=== PATIENT | female | born 1970 | race Caucasian/White ===

== ENCOUNTER 2019-07-06 00:08 | Emergency (ER) | payer BC ==
[~2019-07-06] VITALS: Ht 172.7 cm; Wt 65.8 kg
--- NOTE | 2019-07-06 00:15 | NUR ---
PT [id number] C/O OVERDOSE. PER EMS, PT TOOK MULTIPLE OXYCOTIN THROUGHOUT THE DAY, PT DENIES HI/SI. PT AXO4. RESPIRATIONS EVEN AND UNLABORED. 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 WILL CONTINUE TO MONITOR CLOSELY.
--- NOTE | 2019-07-06 01:15 | NUR ---
PT RESTING BED, NAD NOTED. WILL CONTINUE TO MONITOR.
--- NOTE | 2019-07-06 02:25 | NUR ---
Patient discharged to home in stable condition. Written and verbal after care instructions given. Patient verbalizes understanding of instruction. IV removed. Catheter intact and site benign. Pressure and 4x4 applied to site. No bleeding noted.
[2019-07-06 02:27] VITALS: BP 130/66
== END 2019-07-06 02:29 | disposition home or self-care (01) ==
LOC: ER 00:13
DX: T40.601A Poisoning by unspecified narcotics, accidental (unintentional), initial encounter (principal); F41.9 Anxiety disorder, unspecified; F32.9 Major depressive disorder, single episode, unspecified; Z98.890 Other specified postprocedural states; Z88.1 Allergy status to other antibiotic agents; Y92.89 Other specified places as the place of occurrence of the external cause

== ENCOUNTER 2019-08-30 06:45 | Inpatient (IN) | payer BC ==
[~2019-08-30] VITALS: Ht 172.7 cm; Wt 67.1 kg
[2019-08-30] MEDS ORDERED: IV NS 0.9% 1,000 ML BAG IV ONE ×2 (07:00→08:30)
--- NOTE | 2019-08-30 07:17 | NUR ---
ALEXI FROM HOME FOR POSSIBLE OD, GIVEN 2MG NARCAN PER EMS, WITH RELIEF. PT A/OX4, PER PT SHE TOOK 10 OXY AND 15 NORCO PILLS. CONNECTED TO MONITOR SAT 92 ON 2L. BLOOD DRAWN AND SENT TO LAB, ORDERS RECEIVED AND CARRIED OUT.
[2019-08-30 07:20] LABS: BASOPHILS # (AUTO) 0.2 /CMM (0.0-0.2); BASOPHILS % (AUTO) 1.5 % (0.0-2.0); HEMATOCRIT 45 % (33-45); LYMPHOCYTES # (AUTO) 0.7 /CMM (0.8-4.8); LYMPHOCYTES % (AUTO) 5.7 % (20.0-44.0); MEAN CORPUSCULAR HGB CONC 33 g/dl (31.0-36.0); MEAN CORPUSCULAR VOLUME 94 fL (82-100); MONOCYTES # (AUTO) 0.5 /CMM (0.1-1.30); MONOCYTES % (AUTO) 3.6 % (2.0-12.0); NEUTROPHILS # (AUTO) 11.6 /CMM (1.8-8.9); NEUTROPHILS % (AUTO) 89.2 % (43.0-81.0); PLATELET COUNT (AUTO) 322 /CMM (150-450); RED BLOOD CELL COUNT(AUTO) 4.82 MIL/uL (4.0-5.2)
--- NOTE | 2019-08-30 07:25 | NUR ---
Ross schwab in EDM - 08/30/19 at 0727 by OSMAR RECEIVED REPORT FROM CHAN GALVAN FOR SAVANAH, PT IS AAOX3, NOT IN RESPIRATORY DISTRESS, V/S STABLE, KEPT RESTED AND COMFORTABLE, PT STILL UNABLE TO PROVIDE URINE SPECIMEN, WILL CONTINUE TO MONITOR.
[2019-08-30] MEDS ORDERED: DIAZ10TA4 PO (07:48)
[2019-08-30] MEDS ORDERED: LEVO25TA9 PO (07:48)
[2019-08-30] MEDS ORDERED: DULO20CA19 PO (07:48)
[2019-08-30] MEDS ORDERED: BUPR1PAT3 TD (08:00)
[2019-08-30 08:04] LABS: ALANINE AMINOTRANSFERASE 14 U/L (12-78); ALBUMIN 3.9 g/dL (3.4-5.0); ALCOHOL, BLOOD < 3 mg/dL (0-0); ALKALINE PHOSPHATASE 50 U/L (46-116); ASPARTATE AMINOTRANSFERASE 13 U/L (15-37); BILIRUBIN,DIRECT 0.1 mg/dL (0.0-0.2); BILIRUBIN,TOTAL 0.1 mg/dL (0.2-1.0); CARBON DIOXIDE 29 mmol/L (21-32); CHLORIDE 102 mmol/L (98-107); CREATININE 1.1 mg/dL (0.6-1.3); GLUCOSE 166 mg/dL (74-106); SALICYLATE 4.1 mg/dL (2.8-20.0); SODIUM SERUM 136 mmol/L (136-145); TOTAL PROTEIN, SERUM 7.5 g/dL (6.4-8.2); UREA NITROGEN, BLOOD 20 mg/dL (7-18)
[2019-08-30 08:05] LABS: POTASSIUM 6.3 mmol/L (3.5-5.1)
[2019-08-30 08:06] LABS: ACETAMINOPHEN < 10 ug/ml (10-30)
[2019-08-30] MEDS ORDERED: SODIUM POLYSTYRENE SULFONATE 15 G/60 ML BOTTLE ONE ×2 (08:07→08:39)
[2019-08-30 08:22] LABS: BAND % (MANUAL) 1 % (0.0-5.0); EOSINOPHILS % (MANUAL) 2 % (0-4); LYMPHOCYTES % (MANUAL) 7 % (16-48); MONOCYTES % (MANUAL) 2 % (0-11.0); NEUTROPHILS % (MANUAL) 88 (42-76)
--- NOTE | 2019-08-30 08:22 | NUR ---
URINE SPECIMEN COLLECTED AND SENT TO LAB.
[2019-08-30 08:30] LABS: APPEARANCE,URINE Cloudy (CLEAR); BILIRUBIN,URINE Negative (NEGATIVE); BLOOD, URINE Moderate Ery/uL (NEGATIVE); COLOR,URINE Light yellow (YELLOW); KETONES,URINE Negative (NEGATIVE); LEUKOCYTE ESTERASE ,URINE Negative (NEGATIVE); NITRITE, URINE Negative (NEGATIVE); PH,URINE 5.5 (5.0-8.0); PROTEIN,URINE 30 mg/dl (NEGATIVE); UGLUCOSE Negative (NEGATIVE); UROBILINOGEN,URINE 0.2 EU/dL (0.2)
[2019-08-30] MEDS ORDERED: SODIUM POLYSTYRENE SULFONATE 15 G/60 ML BOTTLE PO ONE (08:30)
[2019-08-30 08:45] LABS: BACTERIA,URINE 2+ /HPF (None Seen); HYALINE CASTS, URINE Many /LPF (None Seen); MUCUS,URINE Many /LPF (None Seen); SQUAMOUS EPITHELIAL CELL,UR Many /HPF (None Seen); WBC,URINE NONE SEEN /HPF (0-3)
--- NOTE | 2019-08-30 08:50 | NUR ---
CALLED NURSING SUP FOR BED.
--- NOTE | 2019-08-30 08:51 | NUR ---
PAGED [facility].
--- NOTE | 2019-08-30 09:45 | NUR ---
DR. ROSELIA MANDUJANO AT BEDSIDE FOR EVAL.
[2019-08-30] MEDS ORDERED: MAGNESIUM HYDROXIDE 30 ML UDC PO PRN (10:00)
[2019-08-30] MEDS ORDERED: LEVOFLOXACIN 750 MG /D5W 150ML PIGGYBACK IV ONE (10:00)
[2019-08-30] MEDS ORDERED: MAG HYDROX/AL HYDROX/SIMETH 30 ML UDC PO PRN (10:00)
[2019-08-30] MEDS ORDERED: BUTRANS TP SCH (10:00)
--- NOTE | 2019-08-30 10:01 | NUR ---
NURSING SUP GAVE TELE BED 312.
--- NOTE | 2019-08-30 10:20 | NUR ---
REPORT GIVEN TO CHAN KEARNEY FOR SAVANAH.
[2019-08-30 11:00] VITALS: BP 115/76
[2019-08-30] MEDS ORDERED: LEVOFLOXACIN 750 MG /D5W 150ML 750 MG in PREMIX 1 EA IV ONE (11:00)
--- NOTE | 2019-08-30 12:00 | NUR ---
ms rn received a new admission from er, 48 year old female,awake,alert,oriented x4,came in w/ dx of overdose,not in distress, will monitor patient.
[2019-08-30 12:50] LABS: CALCIUM, SERUM 7.8 mg/dL (8.5-10.1); CREATININE 0.8 mg/dL (0.6-1.3); POTASSIUM 5.1 mmol/L (3.5-5.1)
--- NOTE | 2019-08-30 16:00 | NUR ---
ms rn on bed, no distress noted.
--- NOTE | 2019-08-30 16:37 | NUR ---
ms rn on bed, no distress noted.
[2019-08-30] MEDS: LEVOTHYROXINE SODIUM 25 MCG TABLET PO SCH (16:51)
[2019-08-30] MEDS: PANTOPRAZOLE 40 MG TABLET.DR PO SCH (16:51)
[2019-08-30] MEDS: IV NS 0.9% 1,000 ML IV PRN (16:54)
[2019-08-30] MEDS: ACETAMINOPHEN 325 MG TABLET PO PRN (19:44)
--- NOTE | 2019-08-30 19:50 | NUR ---
MS RN OPENING NOTES RECEIVED PATIENT FROM MORNING SHIFT ALERT AND ORIENTED X 4. VERBALLY RESPONSIVE, AMBULATORY AND ABLE TO FOLLOW DIRECTIONS. FAMILY ON BEDSIDE. BREATHING REGULAR AND UNLABORED ON ROOM AIR. LEFT AC G18 AND RIGHT FOREARM G18 IV LINES INTACT AND PATENT, FLUSHING WELL WITH NO BLEEDING OR S/S OF INFILTRATION/INFECTION NOTED. BRP WITH CLEAR YELLOW URINE OBSERVED. COMPLAINED OF 3/10 HEADACHE, TYLENOL 650MG GIVEN BY MOUTH. BED LOW AND LOCKED ON SEMI FOWLERS POSITION. WILL CONTINUE TO MONITOR.
[2019-08-30 20:00] VITALS: BP 125/67
[2019-08-30] MEDS: LORAZEPAM INJ 2 MG/ML VIAL IV PRN (23:17)
--- NOTE | 2019-08-30 23:20 | NUR ---
MS RN NOTES COMPLAINED OF FEELING ANXIOUS, ATIVAN 1GM GIVEN VIA IV PUSH. ENCOURAGED TO DO DEEP BREATHING TO REDUCE ANXIETY. WILL CONTINUE TO MONITOR.
--- NOTE | 2019-08-31 01:52 | NUR ---
MS RN NOTES COMPLAINED OF SORE THROAT, CONTRACT WRITER ISAK NOTIFIED WITH ORDERS TO GIVE CEPHACOL LOZENGES NOTED AND CARRIED OUT.
[2019-08-31] MEDS ORDERED: MENTHOL/CETYLPYRD (CEPACOL) 1 LOZ LOZENGE PO PRN (02:00)
[2019-08-31] MEDS: ACETAMINOPHEN 325 MG TABLET PO PRN (04:12)
--- NOTE | 2019-08-31 06:23 | NUR ---
MS RN CLOSING NOTES PATIENT IN BED ALERT AND ORIENTED X 4. VERBALLY RESPONSIVE, AMBULATORY AND ABLE TO FOLLOW DIRECTIONS. BREATHING REGULAR AND UNLABORED ON ROOM AIR. LEFT AC G18 AND RIGHT FOREARM G18 IV LINES INTACT AND PATENT, FLUSHING WELL WITH NO BLEEDING OR S/S OF INFILTRATION/INFECTION NOTED. NO COMPLAINTS OF PAIN/DISCOMFORT/ANXIETY REPORTED OF THE TIME. BED LOW AND LOCKED ON SEMI FOWLERS POSITION. WILL ENDORSE TO MORNING SHIFT FOR SAVANAH.
[2019-08-31 06:27] LABS: BASOPHILS % (AUTO) 0.3 % (0.0-2.0); EOSINOPHILS % (AUTO) 1.4 % (0.0-6.0); HEMATOCRIT 33 % (33-45); LYMPHOCYTES # (AUTO) 1.7 /CMM (0.8-4.8); LYMPHOCYTES % (AUTO) 22.2 % (20.0-44.0); MEAN CORPUSCULAR HGB CONC 34 g/dl (31.0-36.0); MEAN CORPUSCULAR VOLUME 92 fL (82-100); MONOCYTES # (AUTO) 0.5 /CMM (0.1-1.30); MONOCYTES % (AUTO) 6.1 % (2.0-12.0); NEUTROPHILS # (AUTO) 5.4 /CMM (1.8-8.9); PLATELET COUNT (AUTO) 196 /CMM (150-450); RED BLOOD CELL COUNT(AUTO) 3.56 MIL/uL (4.0-5.2); WHITE BLOOD COUNT (AUTO) 7.7 K/uL (4.3-11.0)
[2019-08-31] MEDS: IV NS 0.9% 1,000 ML IV PRN (06:29)
[2019-08-31 06:59] LABS: THYROID STIMULATING HORMONE 1.347 uIU/mL (0.358-3.74)
[2019-08-31 07:35] LABS: CALCIUM, SERUM 7.7 mg/dL (8.5-10.1); CREATININE 0.7 mg/dL (0.6-1.3); PHOSPHORUS 1.7 mg/dL (2.5-4.9)
--- NOTE | 2019-08-31 07:45 | NUR ---
MS RN OPENING NOTES RECEIVED PATIENT IN BED, ALERT AND AWAKE X4. HOB ELEVATED. DENIES ANY C/O PAIN NOR DISCOMFORT AT THIS TIME. LEFT AC SL # 18 AND RFA # 18 INTACT AND PATENT INFUSING NS @ 125 ML/HR SOTERO WELL. BED IN LOWEST POSITION, LOCKED. CALL LIGHT WITHIN REACH. ABLE TO VERBALIZE NEEDS.
[2019-08-31] MEDS: PANTOPRAZOLE 40 MG TABLET.DR PO SCH (08:31)
[2019-08-31] MEDS: LEVOTHYROXINE SODIUM 25 MCG TABLET PO SCH (08:31)
[2019-08-31] MEDS: DULOXETINE HCL 20 MG CAPSULE.DR PO SCH (08:32)
[2019-08-31] MEDS: LEVOFLOXACIN (750 MG) 750 MG TABLET PO SCH (08:34)
[2019-08-31] MEDS: LORAZEPAM INJ 2 MG/ML VIAL IV PRN ×2 (08:40→19:58)
--- NOTE | 2019-08-31 11:09 | NUR ---
MS RN NOTES RECEIVED A CALL FROM DR. YANES WITH N.O NOTED AND CARRIED OUT FOR ABILIFY 1 MG PO BID GIVE 1 DOSE NOW.
[2019-08-31] MEDS: ARIPIPRAZOLE 2 MG TABLET PO SCH ×2 (11:30→17:00)
[2019-08-31] MEDS ORDERED: K PHOS NEUTRAL 250 MG TABLET PO ONE (12:30)
--- NOTE | 2019-08-31 15:45 | NUR ---
MS RN NOTES SUMEET RN FROM [employer] SPOKE TO PATIENT, DISCUSSED AND EXPLAINED 5150 (72 HR HOLD) ALONG WITH AT BEDSIDE. ALSO SPOKE TO PATIENT AND REGARDING CURRENT MEDICAL CONDITION AND PLAN OF CARE. PATIENT AND VERBALIZES UNDERSTANDING. ADVISEMENT OF HOLD WAS GIVEN TO PATIENT. PER PATIENT, SHE WANTS DR. YOLANDA TIM TO BE HER PRIMARY CARE PHYSICAN AND SHE WILL COME TOMORROW TO SEE PATIENT. MEDICAL RECORDS FAXED TO DR. TIM'S OFFICE PER DR. TIM'S REQUEST WITH PATIENT'S CONSENT AND AUTHORIZATION.
[2019-08-31] MEDS: ONDANSETRON HCL/PF 4 MG/2 ML VIAL IVP PRN (18:54)
--- NOTE | 2019-08-31 18:55 | NUR ---
MS RN CLOSING NOTES PATIENT RESTING COMFORTABLY IN BED WITH AT BEDSIDE. HOB ELEVATED. DENIES ANY C/O PAIN NOR DISCOMFORT AT THIS TIME. RFA # SL 18 INTACT AND PATENT. BED IN LOWEST POSITION, LOCKED. CALL LIGHT WITHIN REACH. ABLE TO VERBALIZE NEEDS. IN NO APPARENT DISTRESS.
--- NOTE | 2019-08-31 19:34 | NUR ---
MS RN OPENING NOTES RECEIVED PATIENT FROM MORNING SHIFT ALERT AND ORIENTED X 4. VERBALLY RESPONSIVE, AMBULATORY AND ABLE TO FOLLOW DIRECTIONS. FAMILY ON BEDSIDE. BREATHING REGULAR AND UNLABORED ON ROOM AIR. RIGHT FOREARM G18 IV LINE INTACT AND PATENT, FLUSHING WELL WITH NO BLEEDING OR S/S OF INFILTRATION/INFECTION NOTED. ABLE TO GO TO THE RESTROOM INDEPENDENTLY. NO COMPLAINTS OF PAIN/DISCOMFORT, NAUSEA/VOMITING AND ANXIETY. BED LOW AND LOCKED ON SEMI FOWLERS POSITION. WILL CONTINUE TO MONITOR.
[2019-08-31 20:00] VITALS: BP 131/79
--- NOTE | 2019-08-31 20:00 | NUR ---
MS RN NOTES COMPLAINED OF FEELING ANXIOUS, ATIVAN 1MG GIVEN VIA IV PUSH. VITAL SIGNS WNL, NON-PHARMACOLOGICAL INTERVENTIONS PROVIDED. WILL CONTINUE TO MONITOR.
[2019-09-01] MEDS: LORAZEPAM INJ 2 MG/ML VIAL IV PRN ×2 (05:23→15:29)
--- NOTE | 2019-09-01 05:28 | NUR ---
MS RN NOTES VERBALIZED ANXIETY, ATIVAN 1MG GIVEN VIA IV PUSH. VITAL SIGNS WNL, NON-PHARMACOLOGICAL INTERVENTIONS PROVIDED. WILL CONTINUE TO MONITOR.
--- NOTE | 2019-09-01 06:31 | NUR ---
MS RN CLOSING NOTES PATIENT IN BED ALERT AND ORIENTED X 4. VERBALLY RESPONSIVE, AMBULATORY AND ABLE TO FOLLOW DIRECTIONS. BREATHING REGULAR AND UNLABORED ON ROOM AIR. RIGHT FOREARM G18 IV LINES INTACT AND PATENT, FLUSHING WELL WITH NO BLEEDING OR S/S OF INFILTRATION/INFECTION NOTED. NO COMPLAINTS OF PAIN/DISCOMFORT REPORTED OF THE TIME. VERBALIZED ANXIETY, ATIVAN 1MG GIVEN VIA IV PUSH WITH NON-PHARMACOLOGICAL INTERVENTIONS. BED LOW AND LOCKED ON SEMI FOWLERS POSITION. WILL ENDORSE TO MORNING SHIFT FOR SAVANAH.
--- NOTE | 2019-09-01 07:15 | NUR ---
MS RN NOTES RECEIVED PATIENT IN BED, ASLEEP. AROUSABLE. ALERT AND ORIENTED X4. NO SOB. DENIES ANY C/O PAIN NOR DISCOMFORT AT THIS TIME. RESTING COMFORTABLY ION BED. RFA # 18 INTACT AND PATENT. AMBULATORY WITH STEADY GAIT. BED IN LOWEST POSITION, LOCKED. CALL LIGHT WITHIN REACH.
[2019-09-01] MEDS: DULOXETINE HCL 20 MG CAPSULE.DR PO SCH (08:02)
[2019-09-01] MEDS: LEVOFLOXACIN (750 MG) 750 MG TABLET PO SCH (08:02)
[2019-09-01] MEDS: LEVOTHYROXINE SODIUM 25 MCG TABLET PO SCH (08:02)
[2019-09-01] MEDS: ARIPIPRAZOLE 2 MG TABLET PO SCH ×3 (08:02→17:00)
[2019-09-01] MEDS: PANTOPRAZOLE 40 MG TABLET.DR PO SCH (08:02)
[2019-09-01] MEDS ORDERED: K PHOS NEUTRAL 250 MG TABLET PO ONE (11:30)
[2019-09-01] MEDS: ONDANSETRON HCL/PF 4 MG/2 ML VIAL IVP PRN (14:12)
--- NOTE | 2019-09-01 16:49 | NUR ---
MS RN NOTES PATIENT SEEN AND EXAMINED BY DR. YANES. PER DR. YANES SHE WILL D/C THE 72 HOUR HOLD AND PATIENT CAN GO HOME WHEN PCP D/C PAT. INFORMED MD THAT DR. TIM HAS A D/C ORDER ONCE 72 HR HOLD EXPIRES. PATIENT WANTS TO GO HOME TODAY INSTEAD OF TOMORROW. DR. TIM MADE AWARE OF D/C OF 72 HR HOLD WITH ORDER FOR D/C HOME FOR TODAY INSTEAD.
--- NOTE | 2019-09-01 18:00 | NUR ---
MS RN CLOSING/DISCHARGE NOTES ALERT AND AWAKE ORIENTED X4. PATIENT FOR DISCHARGE. DISCHARGE PACKET AND INSTRUCTIONS GIVEN TO PATIENT. IV ACCESS CATHETER REMOVED WITH TIP INTACT WITH GAUZE DRESSING IN PLACE. PICKED UP BY , NAVA. PER PATIENT SHE HAS A FOLLOW UP APPOINTMENT ALREADY SCHEDULED WITH DR. TIM AND WILL SCHEDULE AN APPOINTMENT WITH A PSYCHIATRIST. PATIENT DENIES ANY VERBALIZATION NOR IDEATION OF HURTING SELF NOR A PLAN. NO SOB. DENIES ANY C/O PAIN NOR DISCOMFORT. ALL BELONGINGS ACCOUNTED FOR. PATIENT LEFT IN STABLE CONDITION VIA PRIVATE CAR. V/S 117/74; HR: 66; O2 SAT 92% ROOM AIR; RR: 18; T:98.0 PAIN 0/10.
== END 2019-09-01 18:08 | disposition home or self-care (01) | DRG 917 ==
LOC: ER 06:46 → MED 10:23
PROVIDERS: ADMIT Nurse Practitioner Acute Care; ATTEND General Practice
DX: T40.601A Poisoning by unspecified narcotics, accidental (unintentional), initial encounter (principal); G92 Toxic encephalopathy; J69.0 Pneumonitis due to inhalation of food and vomit; F33.2 Major depressive disorder, recurrent severe without psychotic features; F11.20 Opioid dependence, uncomplicated; D72.829 Elevated white blood cell count, unspecified; F41.9 Anxiety disorder, unspecified; E87.5 Hyperkalemia; R73.9 Hyperglycemia, unspecified; G47.00 Insomnia, unspecified; Y92.009 Unspecified place in unspecified non-institutional (private) residence as the place of occurrence of the external cause
CPT/HCPCS: 36415; 71045-TC; 80048-TC; 80061-TC; 80076-TC; 80305; 81000-TC; 82962-TC; 83735-TC; 84100-TC; 84443-TC; 84703-TC; 85025-TC; 87081-TC; 87086-TC; A4216; G0378; G0480; J1956; J2060; J2405; J7030